=== PATIENT | female | born 1980 | race Caucasian/White ===

== ENCOUNTER 2016-07-06 11:55 | Outpatient (CLI) ==
[2015-09-14 13:14] VITALS: BMI 29.9
[2016-07-06 13:10] LABS: BILIRUBIN,URINE Negative (NEGATIVE); KETONES,URINE Negative (NEGATIVE); LEUKOCYTE ESTERASE ,URINE Trace (NEGATIVE); NITRITE,URINE Negative (NEGATIVE); PROTEIN,URINE Negative (NEGATIVE); URINE, BLOOD Negative (NEGATIVE)
[2016-07-06 13:19] LABS: ADD URINE MICROSCOPIC YES
== END 2016-07-06 11:56 | disposition home or self-care (01) ==
LOC: LAB 11:55
PROVIDERS: ATTEND Nurse Practitioner Family
DX: R30.9 Painful micturition, unspecified (principal)
CPT/HCPCS: 81001

== ENCOUNTER 2016-07-25 09:55 | Outpatient (CLI) ==
[2015-09-14 13:14] VITALS: BMI 29.9
== END 2016-07-25 09:56 | disposition home or self-care (01) ==
LOC: LAB 09:55
PROVIDERS: ATTEND Internal Medicine
DX: J02.9 Acute pharyngitis, unspecified (principal); R05 Cough
CPT/HCPCS: 87651; 87880

== ENCOUNTER 2017-05-13 09:20 | Outpatient (CLI) ==
[2015-09-14 13:14] VITALS: BMI 29.9
--- NOTE | 2017-05-13 10:17 | DI ---
Exam: Three x-rays of the right foot. Comparison: None available. Reason for exam: Pain in right foot. FINDINGS: No acute fracture or malalignment. Degenerative changes are seen in the right first tuft adjacent to the joint space. No unexplained calcific soft tissue density or radiopaque retained fore ign body. Impression: 1. No acute fracture or dislocation is seen in the right foot. 2. Osseous changes are seen in the proximal right first tuft likely degenerative or erosive. If clin ical concern exists, further evaluation may be performed.
== END 2017-05-13 09:21 | disposition home or self-care (01) ==
LOC: RAD 09:20
PROVIDERS: ATTEND Emergency Medicine
DX: M79.671 Pain in right foot (principal)

== ENCOUNTER 2017-11-26 16:38 | Outpatient (CLI) ==
[2015-09-14 13:14] VITALS: BMI 29.9
--- NOTE | 2017-11-27 08:29 | DI ---
EXAM: Three views of the right ankle. History: Right ankle pain. Findings: No acute fracture or dislocation. No abnormal calcifications or radiopaque foreign bodies . Joint spaces are preserved. Impression: No acute osseous abnormality
== END 2017-11-26 16:39 | disposition home or self-care (01) ==
LOC: RAD 16:38
PROVIDERS: ATTEND Family Medicine
DX: M25.571 Pain in right ankle and joints of right foot (principal)